=== PATIENT | male | born 1960 | race Two or more races ===

== ENCOUNTER 2018-06-23 12:42 | Emergency (ER) | payer BC, MEDICAID ==
[~2018-06-23] VITALS: Ht 180.3 cm; Wt 91.0 kg
[2018-06-23] MEDS ORDERED: FLUORESCEIN SODIUM 1MG/STRIP RIGHTEYE ONE (16:30)
[2018-06-23] MEDS ORDERED: TETRACAINE 0.5% OPHTH DROPS 4ML RIGHTEYE ONE ×2 (16:30→19:45)
[2018-06-23] MEDS ORDERED: IBUPROFEN 600MG TABLET PO ONE (18:15)
[2018-06-23 20:00] VITALS: BP 130/86
== END 2018-06-23 20:23 | disposition home or self-care (01) ==
LOC: ER 12:42
DX: S05.11XA Contusion of eyeball and orbital tissues, right eye, initial encounter (principal); Z88.6 Allergy status to analgesic agent; X58.XXXA Exposure to other specified factors, initial encounter; Y93.89 Activity, other specified; Y92.018 Other place in single-family (private) house as the place of occurrence of the external cause
CPT/HCPCS: 99284

== ENCOUNTER 2018-06-25 02:02 | Emergency (ER) | payer MEDICAID ==
[~2018-06-25] VITALS: Ht 180.3 cm; Wt 91.0 kg
[2018-06-25 02:15] VITALS: BP 113/80
== END 2018-06-25 02:50 | disposition home or self-care (01) ==
LOC: ER 02:37
DX: H15.001 Unspecified scleritis, right eye (principal); Z88.6 Allergy status to analgesic agent; Z88.5 Allergy status to narcotic agent
CPT/HCPCS: 99283

== ENCOUNTER 2018-11-27 12:21 | Emergency (ER) | payer MEDICAID, MEDICARE ==
[~2018-11-27] VITALS: Ht 172.7 cm; Wt 90.0 kg
[2018-11-27 13:20] LABS: BASOPHILS % 0.6 % (0.0-2.0); HEMATOCRIT. 40.7 % (42.0-52.0); HEMOGLOBIN. 14.2 g/dL (14.0-18.0); LYMPHOCYTES % 20.4 % (20.0-50.0); MEAN CORPUSCULAR HEMOGLOBIN 30.8 pg (28.0-32.0); MEAN CORPUSCULAR VOLUME 88.4 fL (80.0-94.0); MEAN PLATELET VOLUME 7.3 fl (7.4-10.4); MONOCYTES % 7.4 % (2.0-8.0); NEUTROPHILS % 70.6 % (40.0-76.0); PLATELET 456 x1000/uL (130-400); RED CELL DISTRIBUTION WIDTH 14.6 % (11.6-14.6)
[2018-11-27 13:29] LABS: PROTHROMBIN TIME 10.4 sec (9.6-11.0)
[2018-11-27 13:42] LABS: CHLORIDE 106 mEq/L (98-107)
[2018-11-27 13:46] LABS: ETHANOL BLOOD < 10 mg/dL
[2018-11-27] MEDS ORDERED: SODIUM CHLORIDE 0.9% 500 ML IV ONE (14:45)
[2018-11-27 15:14] VITALS: BP 140/93
[2018-11-27 15:17] LABS: CLARITY URINE CLEAR (CLEAR); COLOR URINE YELLOW (YELLOW); KETONES URINE NEGATIVE (NEGATIVE); LEUKOCYTE ESTERASE URINE NEGATIVE (NEGATIVE); NITRITE URINE NEGATIVE (NEGATIVE); OCCULT BLOOD URINE NEGATIVE (NEGATIVE); PH URINE 6.5 (4.5-8.0); PROTEIN URINE NEGATIVE (NEGATIVE); SPECIFIC GRAVITY URINE 1.006 (1.005-1.030); UROBILINOGEN URINE 0.2 E.U./dL (0.2-1.0)
[2018-11-27 15:33] LABS: METHADONE URINE SCREEN NEGATIVE (NEGATIVE); OPIATES URINE SCREEN NEGATIVE (NEGATIVE); PHENCYCLIDINE URINE SCREEN NEGATIVE (NEGATIVE)
[2018-11-27 15:34] LABS: *AMPHETAMINES SCREEN URINE NEGATIVE (NEGATIVE); *BARBITURATES SCREEN URINE NEGATIVE (NEGATIVE); *BENZODIAZEPINES SCREEN URINE NEGATIVE (NEGATIVE); *COCAINE SCREEN URINE NEGATIVE (NEGATIVE); CANNABINOID URINE SCREEN PRESUMTIVE POSITIVE (NEGATIVE)
== END 2018-11-27 15:39 | disposition home or self-care (01) ==
LOC: ER 12:21
DX: R00.2 Palpitations (principal); Z88.6 Allergy status to analgesic agent; Z88.5 Allergy status to narcotic agent
CPT/HCPCS: 36415; 71045; 80053; 80305; 80320; 81003; 83690; 83880; 84484; 85025; 85610; 85730; 93005; 99284; J7040; G0480